=== PATIENT | male | born 1970 | race Asian ===

== ENCOUNTER 2021-06-19 04:46 | Emergency (ER) | payer OTHER ==
[~2021-06-19] VITALS: Ht 165.1 cm; Wt 81.6 kg
[2021-06-19 04:56] VITALS: BP 137/99; TEMP 98.4
== END 2021-06-19 06:53 | disposition home or self-care (01) ==
LOC: ED 04:46
DX: K02.9 Dental caries, unspecified (principal); K05.30 Chronic periodontitis, unspecified; F17.210 Nicotine dependence, cigarettes, uncomplicated
CPT/HCPCS: 96372; 99283; J1885

== ENCOUNTER 2021-08-31 13:09 | Outpatient (CLI) | payer OTHER | END 2021-08-31 20:28 | disposition home or self-care (01) | LOC: MRI 13:09 | PROVIDERS: ATTEND Specialist | DX: M54.2 Cervicalgia (principal); M54.81 Occipital neuralgia ==

== ENCOUNTER 2022-03-14 00:39 | Emergency (ER) | payer OTHER ==
[~2022-03-14] VITALS: Ht 162.6 cm; Wt 85.7 kg
[2022-03-14 02:13] LABS: POTASSIUM 3.5 mmol/L (3.6-5.2)
[2022-03-14 02:22] LABS: PLATELET COUNT 163 K/uL (142-355)
[2022-03-14 04:10] VITALS: BP 121/82; TEMP 98.5
== END 2022-03-14 04:10 | disposition home or self-care (01) ==
LOC: ED 00:39
PROVIDERS: Emergency Medicine Emergency Medical Services
DX: K52.89 Other specified noninfective gastroenteritis and colitis (principal)
CPT/HCPCS: 36415; 80053; 81002; 82150; 83690; 85027; 96360; 96374; 96375; 99284; J2270; J2405; J3490; Q9963

== ENCOUNTER 2022-05-15 09:25 | Outpatient (CLI) | payer OTHER | END 2022-05-15 18:49 | disposition home or self-care (01) | LOC: RAD 09:25 | PROVIDERS: ATTEND Internal Medicine | DX: Z02.71 Encounter for disability determination (principal); M54.50 Low back pain, unspecified; M25.561 Pain in right knee; G47.9 Sleep disorder, unspecified; R51.9 Headache, unspecified; M54.2 Cervicalgia; M25.512 Pain in left shoulder ==

== ENCOUNTER 2022-06-19 13:59 | Outpatient (CLI) | payer OTHER | END 2022-06-19 20:15 | disposition home or self-care (01) | LOC: RAD 13:59 | PROVIDERS: ATTEND Family Medicine | DX: M54.12 Radiculopathy, cervical region (principal); M25.512 Pain in left shoulder ==

== ENCOUNTER 2022-06-26 08:50 | Outpatient (CLI) | payer OTHER | END 2022-06-26 20:38 | disposition home or self-care (01) | LOC: US 08:50 | PROVIDERS: ATTEND Family Medicine | DX: R10.11 Right upper quadrant pain (principal) ==

== ENCOUNTER 2022-07-16 03:27 | Emergency (ER) | payer OTHER ==
[~2022-07-16] VITALS: Ht 165.1 cm; Wt 81.6 kg
[2022-07-16 04:25] VITALS: BP 124/70; TEMP 99.1
== END 2022-07-16 04:30 | disposition home or self-care (01) ==
LOC: ED 03:27
DX: J10.1 Influenza due to other identified influenza virus with other respiratory manifestations (principal); G89.29 Other chronic pain; M54.89 Other dorsalgia; M54.2 Cervicalgia; F17.210 Nicotine dependence, cigarettes, uncomplicated
CPT/HCPCS: 87502; 99283

== ENCOUNTER 2022-09-19 13:48 | Emergency (ER) | payer OTHER ==
[~2022-09-19] VITALS: Ht 165.1 cm; Wt 81.6 kg
[2022-09-19 14:05] VITALS: BP 132/86; TEMP 98.1
== END 2022-09-19 14:42 | disposition home or self-care (01) ==
LOC: ED 13:48
DX: K02.9 Dental caries, unspecified (principal)
CPT/HCPCS: 96372; 99282; J1885

== ENCOUNTER 2023-01-16 09:18 | Outpatient (CLI) | payer OTHER | END 2023-01-16 18:57 | disposition home or self-care (01) | LOC: RAD 09:18 | PROVIDERS: ATTEND Internal Medicine | DX: Z02.71 Encounter for disability determination (principal); M25.561 Pain in right knee ==

== ENCOUNTER 2023-04-16 00:48 | Emergency (ER) | payer OTHER ==
[~2023-04-16] VITALS: Ht 165.1 cm; Wt 81.6 kg
[2023-04-16 02:30] VITALS: BP 114/80; TEMP 98.6
== END 2023-04-16 02:30 | disposition home or self-care (01) ==
LOC: ED 00:48
DX: B35.3 Tinea pedis (principal); I10 Essential (primary) hypertension; M19.90 Unspecified osteoarthritis, unspecified site
CPT/HCPCS: 99282